=== PATIENT | female | born 1960 | race African-American/Black ===

== ENCOUNTER → 2020-08-17 14:56 | Outpatient (CLI) | payer OTHER, SELFPAY ==
--- NOTE | ~2020-08-17 | MM_ITS ---
EXAMINATION: MM screening [facility] BI w karishma HISTORY: Screening mammogram TECHNIQUE: Craniocaudal and mediolateral oblique 3-D tomosynthesis images were obtained and synthetic 2-D images were generated. CAD analysis was submitted and interpreted. COMPARISON: 09/01/2018, 03/12/2017, 04/20/2014 BREAST PARENCHYMAL COMPOSITION: The breasts are heterogeneously dense, which may obscure small masses . FINDINGS: There is stable asymmetry in the outer right breast on the craniocaudal view. There is no e vidence of suspicious mass, calcification, or architectural distortion to suggest malignancy in eithe r breast. There has been no suspicious interval change. IMPRESSION: 1. No mammographic evidence of malignancy. 2. Recommend routine screening mammography in one year. BI-RADS Category 2: Benign finding(s). Reviewed, dictated and finalized at location A.
== END ==
DX: Z12.31 Encounter for screening mammogram for malignant neoplasm of breast (principal)
CPT/HCPCS: 77063; 77067

== ENCOUNTER → 2022-05-28 12:15 | Outpatient (CLI) | payer OTHER, SELFPAY ==
--- NOTE | ~2022-05-28 | MM_ITS ---
EXAMINATION: MM screening [facility] [place] BI w karishma HISTORY: Screening mammogram TECHNIQUE: Craniocaudal and mediolateral oblique 3-D tomosynthesis images were obtained and synthetic 2-D images were generated. CAD analysis was submitted and interpreted. COMPARISON: 08/17/2020, 09/01/2018,03/12/2017 bilateral screening mammograms BREAST PARENCHYMAL COMPOSITION: The breasts are heterogeneously dense, which may obscure small masses . FINDINGS: Occasional benign calcifications. There is no evidence of suspicious mass, calcification, or architectural distortion to suggest malignancy in either breast. There has been no suspicious inte rval change. IMPRESSION: 1. No mammographic evidence of malignancy. 2. Recommend routine screening mammography in one year. BIRADS Category 2: Benign Reviewed, dictated and finalized at location A. 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
== END ==
DX: Z12.31 Encounter for screening mammogram for malignant neoplasm of breast (principal)
CPT/HCPCS: 77063; 77067

== ENCOUNTER 2024-06-10 09:47 | Outpatient (CLI) | payer MEDICARE, SELFPAY ==
--- NOTE | ~2024-06-10 | MM_ITS ---
EXAMINATION: MM screening [facility] w karishma HISTORY: Screening TECHNIQUE: Craniocaudal and mediolateral oblique 3-D tomosynthesis images were obtained and synthetic 2-D images were generated. CAD analysis was submitted and interpreted. COMPARISON: Comparison to multiple prior studies sequentially, with oldest reviewed study dated 02/18. BREAST PARENCHYMAL COMPOSITION: Dense: The breasts are heterogeneously dense, which may obscure small masses FINDINGS: There is no evidence of suspicious mass, calcification, or architectural distortion to sugg est malignancy in either breast. There has been no suspicious interval change. IMPRESSION: 1. No mammographic evidence of malignancy. 2. Recommend routine screening mammography in one year. BI-RADS Category 1: Negative Reviewed, dictated and finalized at location A. 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
--- OUTSIDE RECORDS SUMMARY | 2024-06-11 22:52 | XMS_ITS | Clinical Summary ---
Author Organization [facility] Address [address] [place] [address]. [place], [place] [id number] [place] [id number] Care Team Providers Care Controller Repairer And Tester Name Role Phone Stefanie Quezada MD Primary Care Provider [phone] Anjel Vaz MD Unavailable [phone] Allergies Active Allergy Reactions Criticality Noted Date Comments Sulfamethoxazole Itching 06/18/2022 Reaction: Itching, Trimethoprim Itching 06/18/2022 Reaction: Itching, Medications aspirin EC (ECOTRIN) 81 MG tablet Take 325 mg by mouth daily. Active lidocaine (XYLOCAINE) 5 % ointment Apply topically as needed for pain 3 Active Active Problems Problem Noted Date Diagnosed Date Closed right trimalleolar fracture 06/19/2022 Hepatic steatosis 06/18/2022 Overview (06/18/2022): Last Assessment & Plan: LFTs have normalized congratulated her on continue to lose weight. Chronic gastritis without bleeding 02/08/2021 Overview (06/18/2022): Last Assessment & Plan: Off PPI has lost weight and this is probably helping her the most would recommend EUS ultrasound in May which would be a year from the prior study Elevated LFTs 05/10/2020 Overview (06/18/2022): Last Assessment & Plan: Post spinterectomy repeat LFTs Family history of OK (myocardial infarction) Overview (06/18/2022): Father passed of sudden heart attack age 59 Age-related nuclear cataract of both eyes 2019 Overview (06/18/2022): Last Assessment & Plan: Not yet visually significant; follow for now PVD (posterior vitreous detachment), right 04/19 Overview (06/18/2022): Last Assessment & Plan: Acute X 1 week -retina flat and attached both eyes (OU) -pt ed s/s retinal detachment (RD): RTC rudi if noted -otherwise RTC 1 month repeat DFE Osteopenia of spine 07/24/2019 Overview (06/18/2022): Last Assessment & Plan: Calcium vitamin-D weight-bearing exercises Acne keloidalis nuchae 04/24/2019 Overview (06/18/2022): Last Assessment & Plan: The lesion has increased in size and now inflammed and large Initially the lesion has started as a small pimple according to her. Which unfortunately broke and then scarred and then has gradually increased in size she is not sure if the increase in size has been more in the past few months but definitely there's more burning and tingling. Recommend dermatology referral for biopsy and or resection. Recurrent major depressive disorder 12/02/2017 Overview (06/18/2022): Last Assessment & Plan: PHQ 9 and anxiety questionnaire reviewed. Doing well off of medication. Post menopausal syndrome 09/02/2017 Overview (06/18/2022): Last Assessment & Plan: Off HRT but doing well. Last Pap smear 2019 repeat in 2022 Sarcoidosis 08/05/2017 Overview (06/18/2022): Dx'd by mediastinoscopy circa 1989 Last Assessment & Plan: Doing well at this time. Resolved Problems Problem Noted Date Diagnosed Date Resolved Date Bimalleolar ankle fracture 06/18/2022 0 06/19/2022 Immunizations Name Administration Dates Next Due PFIZER COVID-19 (ORIGINAL FO RMULATION, PURPLE CAP) mRNA, LNP-S, PF, 30 MCG/0.3 ML DOSE 03/11/2021 Family History Medical History Relation Comments Hypertension Mother Relation Status Comments Mother Social History Tobacco Use Types Packs/Day Years Used Date Smoking Tobacco: Never Passive Smoke Exposure: Never Smokeless Tobacco: Never Tobacco Cessation:Counseling Given: No Comments:Never Smoked Alcohol Use Standard Drinks/Week Comments Yes 0 (1 standard drink = 0.6 oz pur e alcohol) socially Humiliation, Afraid, Rape, and Kick questionnair e Answer Date Recorded Within the last year, have y ou been afraid of your partner or ex-partner? No 06/18/2022 Within the last year, have y ou been humiliated or emotionally abused in other ways by your partner or ex-partner? No Within the last year, have y ou been kicked, hit, slapped, or otherwise physically hurt by your partner or ex-partner? No 06/18/2022 Within the last year, have y ou been raped or forced to have any kind of sexual activity by your partner or ex-partner? No 06/18/2022 Overall Financial Resource Strain (CARDIA) Answe r Date Recorded How hard is it for you to pa y for the very basics like food, housing, medical care, and heating? Not hard at all 06/18/2022 PHQ-2 Answer Date Recorded Patient Health Questionnaire-2 Score 0 07/30/2022 Hunger Vital Sign Answer Date Recorded Within the past 12 months, y ou worried that your food would run out before you got the money to buy more. Never true 06/18/19 23 Within the past 12 months, t he food you bought just didn't last and you didn't have money to get more. Never true 06/18/2022 PRAPARE - Transportation Answer Date Re corded In the past 12 months, has l ack of transportation kept you from medical appointments or from getting medications? No 05/22 In the past 12 months, has l ack of transportation kept you from meetings, work, or from getting things needed for daily living? No 06/18/2022 Housing Stability Vital Sign Answer Guerrero e Recorded In the last 12 months, was t here a time when you were not able to pay the mortgage or rent on time? No 06/18/2022 In the last 12 months, how many places have you lived? 1 06/18/2022 In the last 12 months, was t here a time when you did not have a steady place to sleep or slept in a detention (including now)? No 06/18/2022 Comments No Sex and Gender Information Value Date Recorded Sex Assigned at Not on file Legal Sex Female 6:13 PM CDT Gender Identity Not on file Sexual Orientation Not on file Last Filed Vital Signs Vital Sign Reading Time Taken Comments Blood Pressure 138/92 11/26/2022 7:29 PM CDT Pulse 100 11/26/2022 7:19 PM CDT Temperature 36.2 ??C (97.2 ??F) 11/26/2022 7:19 PM CD T Respiratory Rate 16 11/26/2022 7:19 PM CDT Oxygen Saturation 98% 11/26/2022 7:19 PM CDT Inhaled Oxygen Concentration - - Weight 82.5 kg (181 lb 14.1 oz) 11/26/2022 7:19 PM CDT Height 177.8 cm (5' 10 ) 11/26/2022 7:19 PM CDT Body Mass Index 26.1 11/26/2022 7:19 PM CDT Plan of Treatment Health Maintenance Due Date Last Done Comments Colorectal Cancer Screening Colonoscopy (10 Years) 1959 Hepatitis C 1977 Mammogram Screening 1999 Zoster Vaccines (1 of 2) 2009 RSV Immunization or 60+ Years (1 - Risk 60-74 years 1-dose series) 2019 PHQ-2 (Physician [place]) 07/31/2023 07/30/2022 COVID-19 Vaccine (5 - season) 2024 02/22/2022, 03/11/2021, 07/01/2020, Additional history exists Dexa Scan (General) 02/12/2024 Pneumococcal Vaccine: 65+ Years (1 of 1 - PCV) 02/12/2024 Influenza Adult (#1) 2024 02/15/2022, 02/08/2021, 03/03/2020, Additional history exists DTaP, Tdap and Td Vaccines (3 - Td or Tdap) 07/01/2024 07/01/2014, 05/30/2012 Meningococcal B Vaccine Aged Out No l onger eligible based on patient's age to complete this topic Meningococcal Vaccine Aged Out No alma alexis eligible based on patient's age to complete this topic Pneumococcal Vaccine: Pediatrics (0 to 5 Years) and At-Risk Patients (6 to 64 Years) Aged Out No longer eligible based on patient's age to complete this topic RSV Immunizations Under 20 Months Aged Out No longer eligible based on patient's age to complete this topic Goals Goal Patient Goal Type Associated Problems Recent Progress Patient-Stated? Author Family - family caregiver with be involved in care transitions and discharge planning Lifestyle No Silver Perez, RN Medical Devices Implanted Type Area Fret Saw Operator Device Identifier Shelf Expiration Date Model / Serial / Lot 6 Hole Locking Distal Fibula Plate Implanted:Qty: 1 on 06/21/2022 by Anjel Vaz MD at [facility] Plate Right: Ankle [employer] [id number] 06 / / Screw Cortical Arthrex 3.5 X 12mm - [id number] Implanted:Qty: 1 on 06/21/2022 by Anjel Vaz MD at [facility] Screw Right: Ankle [employer] [id number] / / Screw Locking Arthrex 2.7 X 12mm - [id number] Implanted:Qty: 3 on 06/21/2022 by Anjel Vaz MD at [facility] Screw Right: Ankle [employer] [id number]-1 2 / / Screw Bone 3.5mm 14mm Low Profile Screw Stainless Steel T15 Full Thread Cortex Nonlock Self Tap Ankle Fracture Management - [id number] Implanted:Qty: 2 on 06/21/2022 by Anjel Vaz MD at [facility] Screw Right: Ankle [employer] [id number] / / Screw Locking Arthrex 2.7 X 10mm - [id number] Implanted:Qty: 1 on 06/21/2022 by Anjel Vaz MD at [facility] Screw Right: Ankle [employer] [id number]-8827CL- 10 / / Screw Bone 2.7mm 14mm Low Profile Screws Stainless Steel T10 Full Thread Cortex Self Tap Lock Stardrive Solid Ankle Fracture Management - [id number] Implanted:Qty: 1 on 06/21/2022 by Anjel Vaz MD at [facility] Screw Right: Ankle [employer] [id number]- 14 / / Screw Low Profile Arthrex 40mm - [id number] Implanted:Qty: 2 on 06/21/2022 by Anjel Vaz MD at [facility] Screw Right: Ankle [employer] [id number]- 40 / / Insurance [facility] Advance Directives * Full Code (Latest Code Status on File) Date Activated Date Inactivated Comments 06/19/2022 7:46 AM 06/22/2022 8:18 PM Care Teams Controller Repairer And Tester Relationship Specialty Start Date End Date Stefanie Quezada MD [address] [address] PCP - General INTERNAL MEDICINE 06/18/22 Anjel Vaz MD [address] [place] [id number] ORTHOPAEDIC SURGERY 07/25/22
--- OUTSIDE RECORDS SUMMARY | 2024-06-11 22:52 | XMS_ITS | Referral Summary ---
Author Organization [facility] Address [address] [place] [address] Care Team Providers Care Progress Developer Name Role Phone Stefanie Quezada MD Primary Care Provider Ralph Torrez MD Unavailable [phone] Moira Mireles OD Unavailable [phone] Encounters Date Type Department Care Team Description 06/08/2024 Telephone [facility] Medicine [address] [place] [address] Stefanie Quezada MD Medical Question/Miscellaneou s 04/04/2024 11:20 AM MACHINE PRECISION ETCHER - 04/04/2024 11:59 PM MACHINE PRECISION ETCHER Hospital Encounter [address] [address] Intractable chronic migraine without aura and with status migrainosus; Dizzy spells; Lightheadedness Discharge Disposition: Discharge to home or self care 03/19/2024 9:00 AM CDT Lab [facility] [address] [place] [address] Hypertensive retinopathy of both eyes, grade 2 03/19/2024 8:00 AM CDT Office Visit [facility] [address] [place] [address] Jesus Moore NP Intractable chronic migraine without aura and with status migrainosus (Primary Dx); Dizzy spells; Lightheadedness from Last 3 Months Allergies Active Allergy Reactions Criticality Noted Date Comments Losartan Dizziness Low 02/14/2024 Sulfamethoxazole Itching Reaction: Itching, Trimethoprim Itching Reaction: Itching, Medications albuterol HFA (PROVENTIL HFA,VENTOLIN HFA,PROAIR HFA) 90 mcg/actuation inhaler Inhale 2 puffs every 8 (eight) hours as needed for wheezing 1 each 02/22/20 Active dicyclomine (BENTYL) 10 mg capsule Take 1 capsule (10 mg total) by mouth 4 (four) times a day before meals and nightly 02/23/20 Active lidocaine (XYLOCAINE) 5 % ointment Apply topically as needed for pain 35.44 g 12/23/19 24 Active rimegepant (Nurtec ODT) tablet,disintegrat ingIndications:[facility] 1 tablet (75 mg total) under the tongue every other day 45 tablet 3 02/25/20 24 Active Additional Information Patient not taking.Reported on 03/19/2024 rizatriptan HAND SCREEN PRINTER (MAXALT-HAND SCREEN PRINTER) 10 mg disintegrating tabletIndications: Migraine Take 1 tablet (10 mg total) by mouth once as needed for migraine May repeat in 2 hours if unresolved. Do not exceed 30 mg in 24 hours. 9 tablet 1 02/25/20 24 Active amLODIPine (NORVASC) 5 mg tablet Take 1 tablet (5 mg total) by mouth daily 90 tablet 1 02/25/20 24 Active escitalopram (LEXAPRO) 10 mg tablet TAKE 1 TABLET BY MOUTH EVERY DAY 90 tablet 1 04/27/20 24 Active QUEtiapine (SEROquel) 25 mg tablet Take 1 tablet (25 mg total) by mouth nightly 90 tablet 1 05/04/20 24 Active propranolol LA (INDERAL LA) 60 mg 24 hr capsule Take 1 capsule (60 mg total) by mouth daily 30 capsule 11 05/18/20 24 Active nortriptyline (PAMELOR) 25 mg capsule Take 1 capsule (25 mg total) by mouth nightly 90 capsule 1 05/19/20 24 025 Active nortriptyline (PAMELOR) 25 mg capsule Take 1 capsule (25 mg total) by mouth nightly 90 capsule 1 02/25/20 24 024 Discontin ued(Reord er) propranolol LA (INDERAL LA) 60 mg 24 hr capsule Take 1 capsule (60 mg total) by mouth daily 30 capsule 11 03/19/20 24 024 Discontin ued(Reord er) Active Problems Problem Noted Date Diagnosed Date Intractable chronic migraine without aura and with status migrainosus 02/25/2024 Assessment & Plan (03/19/2024 9:03 AM CDT): Patient presents today for re-evaluation of acute migraines with sudden onset with associated symptoms of light sensitivity, dizziness, double vision, and pain occurring in her occipital region radiating to her temporal and frontal region. An MRI was completed which did not show any acute intracranial abnormality. She reports significant improvement with propranolol and nortriptyline. Reports slightly increased constipation issues. Given her complaints of lightheadedness, dizziness, and double vision I advised the pain CTA of her head and neck for further evaluation for posterior circulation. Current preventative therapies: nortriptyline propranolol Current acute therapies: rizatriptan Plan: 1. Headache diary 2. Preventative: Increase propranolol 60 mg extended release; advise checking blood pressure and heart rate daily. Discussed side effects and if occurs she is to notify office. Continue nortriptyline 25 mg p.o. nightly. Advise daily MiraLax to help with constipation side effect. 3. Acute therapy: Continue rizatriptan 10 mg at the onset of symptoms; may repeat dose in 2 hours if symptoms still present 4. Limit caffeine intake 5. Encouraged regular exercise and well-balanced diet 6. Encouraged adequate water intake 7. Check for reversible causes including vitamin B1, vitamin B12, folate, and TSH cascade 8. Obtain CTA head and neck to check for posterior circulation 9. Follow up 3-4 months At today? s visit migraine education was performed. We discussed avoidance of migraine triggers and non-medicinal strategies for preventing migraines. Topics of discussion included improved sleep hygiene, healthy diet, and stress reduction techniques. We also discussed the importance of avoiding medication overuse, as this can promote analgesic rebound headache. Assessment & Plan (02/25/2024 9:01 AM CDT): We d/w this in detail and we d.w mri brain with and with out contrast We d.w increasing the dose of pamelor 25 mg at night And we d.w nurtec 75 every other day and avoid excedrin migraine and we d.w using maxalt as needed Uncontrolled hypertension 02/25/2024 Assessment & Plan (02/25/2024 9:01 AM CDT): Cont amlodipine 5 mg a day SOB (shortness of breath) on exertion 02/07/2024 Assessment & Plan (02/07/2024 4:00 PM CDT): Has history of sarcoidosis. Sounds clear. EKG shows no acute findings. Would like to start with an echocardiogram. Recent blood work was unremarkable. New onset headache 02/07/2024 Assessment & Plan (02/07/2024 4:00 PM CDT): We discussed getting stat CT head. Part of me wonders if this is a side effect of recently being started on Lexapro versus getting flu and pneumonia vaccine. CT head unremarkable. She is currently on nortriptyline at bedtime already. We discussed this could possibly be also ocular migraine. Start ubrelvy as needed. Sample given. We discussed worsening symptoms contact the office. Has an appointment with work ticket distributor next week. We did discuss cutting down the Lexapro to 5 mg. Case discussed with Dr. Quezada. Discussed worsening symptoms to go to the ER. Next week she will update on how she is doing. Blurred vision, bilateral 02/07/2024 Assessment & Plan (02/07/2024 4:01 PM CDT): Wondering if part of ocular migraine. Neuro exam is stable. Stat CT head completed which was negative. Diastolic blood pressure slightly elevated. At this time would like to start with using ubrelvy as needed for possible migraine. Cut down on lexapro to 5mg. Has an appointment with work ticket distributor next week. Worsening symptoms to call or go to the ER. Post-menopausal 01/31/2024 Hair thinning 01/31/2024 Assessment & Plan (01/31/2024 5:21 PM CDT): Discussed getting TSH and seeing a cctv technician Pancreatic cyst 02/19/2023 Assessment & Plan (01/31/2024 5:19 PM CDT): Needs to follow-up with business programmer for EUS. States she will have to make a follow up. Assessment & Plan (02/19/2023 3:39 PM CDT): Referral placed for GI for EUS Insomnia due to medical condition 02/19/2023 Assessment & Plan (01/31/2024 5:19 PM CDT): Continue Seroquel Assessment & Plan (02/19/2023 3:40 PM CDT): Recommended Atarax at bedtime Chronic gastritis without bleeding 02/08/2021 Assessment & Plan (02/19/2023 3:40 PM CDT): Discussed PPI with pantoprazole for 30 days followed by Pepcid 20 mg twice daily hopefully she we would have had the EUS by the time Assessment & Plan (02/08/2021 12:55 PM CDT): Off PPI has lost weight and this is probably helping her the most would recommend EUS ultrasound in May which would be a year from the prior study Family history of [place] (myocardial infarction) Overview (05/10/2020): Father passed of sudden heart attack age 59 Other fatigue 05/10/2020 Assessment & Plan (02/07/2024 4:02 PM CDT): Ongoing for past couple of days. She did get to vaccination as well as started on Lexapro. One of these could be a contributing factor. At this time will decrease Lexapro to 5. Monitor the symptoms. Recent blood work was overall unremarkable. She has no urinary symptoms. We will do close monitoring. She will notify us if the symptoms are worsening or not improving. She will update next week on how things are going. Elevated LFTs 05/10/2020 Assessment & Plan (08/10/2020 12:58 PM CDT): Post spinterectomy repeat LFTs Assessment & Plan (05/10/2020 1:09 PM MACHINE PRECISION ETCHER): Acute elevation in LFTs & bilirubin. Patient has a Hx of cholecystitis with cholecystectomy. Discussed possibilities for biliary tract obstruction including residual stone, mass, mucus plugging etcetera. Patient agrees to go to [facility] ED. Triage report called to [facility] ED. Age-related nuclear cataract of both eyes 2019 Assessment & Plan (04/20/2020 3:27 PM MACHINE PRECISION ETCHER): Not yet visually significant; follow for now PVD (posterior vitreous detachment), right 04/19 Assessment & Plan (04/20/2020 3:28 PM MACHINE PRECISION ETCHER): Acute X 1 week -retina flat and attached both eyes (OU) -pt ed s/s retinal detachment (RD): RTC rudi if noted -otherwise RTC 1 month repeat DFE Assessment & Plan (04/19/2020 3:18 PM MACHINE PRECISION ETCHER): No headaches noted. But there is describing spots during the field of vision. Recommended [employer] evaluation. Referral made. Osteopenia of spine 07/24/2019 Assessment & Plan (02/08/2021 12:55 PM CDT): Calcium vitamin-D weight-bearing exercises Assessment & Plan (08/10/2020 12:57 PM CDT): Continue calcium vitamin-D weight-bearing exercises repeat bone density Assessment & Plan (07/24/2019 1:58 PM MACHINE PRECISION ETCHER): We d/w this in detail and we d.w ca and vit D and weight bearing exercises Acne keloidalis nuchae 04/24/2019 Assessment & Plan (01/31/2024 5:28 PM CDT): Referred to dermatology Assessment & Plan (04/24/2019 3:06 PM MACHINE PRECISION ETCHER): The lesion has increased in size and [...] dermatology referral for biopsy and or resection. BMI 25.0-25.9,adult 04/24/2019 Assessment & Plan (02/15/2022 8:16 PM CDT): BMI follow up: nutritional counseling and exercise as tolerated. Assessment & Plan (04/24/2019 3:06 PM MACHINE PRECISION ETCHER): Discussed weight and exercise changes. She is very motivated to bring her BMI down. Routine physical examination 06/20/2018 Assessment & Plan (02/06/2024 8:29 PM CDT): HRA form reviewed. We discussed diet and exercise. We discussed continuing social engagement with family and within community. States very active. We discussed seeing business programmer for repeat EUS. Pneumonia vaccine today. Flu and COVID vaccine at local pharmacy next month. Up-to-date on colonoscopy. Pap smear completed on today's visit. Needs a mammogram and bone density. Assessment & Plan (02/19/2023 3:39 PM CDT): Colonoscopy 2019 was unremarkable. Upper endoscopy showed chronic gastritis and pancreatic cysts. At this point I am concerned about her abdominal discomfort. Per GI was recommended to have a repeat EUS in 1 year but we had a almost 2 and half years out. Discussed this with patient. The night sweats are a major issue. Instead of HRT we decided to go the route of Atarax at bedtime to decrease the itching from the keloids. Discussed flu COVID and RSV vaccination all 3 of which she is going to obtain at the pharmacy. Assessment & Plan (02/15/2022 8:14 PM CDT): Patient's medical history, family history, medication list reviewed. Order for mammogram given. She would like to skip bone density this year given her insurance. Up to date on pap smear. Blood work ordered. Up to date on vaccination. Flu vaccine today. Up to date on colonoscopy. Assessment & Plan (08/10/2020 12:57 PM CDT): Mammogram and bone density to be done. Pap smear July of 2019 20-repeat in 2022 up-to-date with vaccinations. Discussed repeating LFTs. Cholesterols have been stable last year will skip this year. Assessment & Plan (06/20/2018 3:10 PM MACHINE PRECISION ETCHER): We discussed diet and exercise in detail. Discussed the need for well-woman exam. Referrals given. She is going to start all of these in August. Screening for breast cancer 06/20/2018 Screening for colon cancer 06/20/2018 Recurrent major depressive disorder 12/02/2017 Assessment & Plan (02/07/2024 4:03 PM CDT): Was started on Lexapro 10 mg which she has previously been on before. At this time we will decrease it to 5 mg given side effects could potentially be headache from the medication. She verbalizes understanding. Once the headaches are resolved and she has been on it for 4 weeks we will go back up to 10 mg. She verbalizes understanding Assessment & Plan (01/31/2024 5:16 PM CDT): Struggling with depression at this time. Previously has been on Lexapro as well as Wellbutrin at 1 point. States seems this medication did help however she stopped taking them when she started feeling better. At this time does feel that she would benefit from going back on medication. Would like to start her on Lexapro 10 mg. Continue Seroquel at bedtime. We discussed reaching out in 4 weeks with letting us know how she is doing on the dosage. Verbalizes understanding Assessment & Plan (02/15/2022 8:15 PM CDT): PHQ 9 and anxiety questionnaire reviewed. Doing well off of medication. Assessment & Plan (02/08/2021 12:56 PM CDT): Doing very well off medications. Assessment & Plan (08/10/2020 12:57 PM CDT): Continue Wellbutrin and Lexapro. Doing well. Assessment & Plan (05/10/2020 11:10 PM MACHINE PRECISION ETCHER): Continue home wellbutrin and lexapro Assessment & Plan (04/19/2020 3:17 PM MACHINE PRECISION ETCHER): Patient doing better with increasing the Lexapro to 20 along with Wellbutrin. Not requiring the Lunesta on a regular basis. Assessment & Plan (01/13/2020 10:57 AM CDT): Discussed increasing Lexapro to 20 mg and using Wellbutrin XL 150 in the morning as usual discussed trying to plan some fun activities with her sisters our goal from. Has been through marital counseling before and would not like to go back to marital counseling again she does realize that she needs to make some decisions on her own. We had tried Lunesta in the past for sleep issues and she is going to get back to me about this. Assessment & Plan (04/24/2019 3:06 PM MACHINE PRECISION ETCHER): Doing well on Lexapro 10 mg a day and Wellbutrin XL 150 mg a day. Discussed diet and exercise and cognitive behavioral therapy Assessment & Plan (06/20/2018 3:10 PM MACHINE PRECISION ETCHER): Patient is smiling and doing well on Wellbutrin XL in the morning and Lexapro 10 at night. She has stop the Lunesta as she is able to sleep better. We discussed continuing the medications at least for a total of 24 months. Assessment & Plan (12/02/2017 5:16 PM CDT): We discussed this at length we discussed trying Lexapro since she had great success with in the past we discussed continuing the Wellbutrin in the morning we discussed marital conflict being a major part of this she is going to see a counselor as well we discussed close follow-up and call us if there is worsening of symptoms sooner Post menopausal syndrome 09/02/2017 Assessment & Plan (02/08/2021 12:55 PM CDT): Off HRT but doing well. Last Pap smear 2019 repeat in 2022 Assessment & Plan (04/19/2020 3:17 PM MACHINE PRECISION ETCHER): Scheduled for mammogram by end may. Continuing Activella. Assessment & Plan (04/24/2019 3:06 PM MACHINE PRECISION ETCHER): Up-to-date with mammogram. Pap smear in June of 2019. Continue Activella. Assessment & Plan (06/20/2018 3:10 PM MACHINE PRECISION ETCHER): Continue control. Mammogram and bone density prescriptions have been given. Assessment & Plan (12/02/2017 4:16 PM CDT): Still use lunesta as needed and we d.w adding lexapro to wellbutrin Assessment & Plan (09/02/2017 11:07 AM CDT): Situational depression and insomnia We d.w wellbutrin XL 150mg q am And lunesta in evening Pleurisy 08/28/2017 Assessment & Plan (08/28/2017 3:46 PM CDT): Two weeks of prednisone via tapering dose Sarcoidosis 08/05/2017 Overview (08/28/2017): Dx'd by mediastinoscopy [id number] Assessment & Plan (01/31/2024 5:11 PM CDT): Doing stable. Albuterol inhaler as needed. Assessment & Plan (02/15/2022 8:13 PM CDT): Doing well at this time. Assessment & Plan (02/08/2021 12:56 PM CDT): Doing well at this current time. Will continue to watch. She usually uses prednisone for a flare up. Assessment & Plan (01/13/2020 10:56 AM CDT): Currently her inflammatory markers and CBC are normal she seems to be doing well she does have her ProAir for backup we discussed gradually increasing exercising. Discussed having prednisone on hand when symptoms change. Assessment & Plan (09/02/2017 11:08 AM CDT): Reviewed the pulmonary note and we d.w the tapering the prednisone Assessment & Plan (08/28/2017 3:46 PM CDT): Highly doubt that this represents a flare of underlying sarcoidosis given the negative CT and low WADE level. Assessment & Plan (08/05/2017 5:12 PM CDT): Working diagnosis, based on syms Hepatic steatosis Assessment & Plan (02/19/2023 3:40 PM CDT): Discussed diet and exercise changes Assessment & Plan (02/08/2021 12:55 PM CDT): LFTs have normalized congratulated her on continue to lose weight. Resolved Problems Problem Noted Date Diagnosed Date Resolved Date Chest pain 05/10/2020 08/10/2020 Assessment & Plan (05/10/2020 11:10 PM MACHINE PRECISION ETCHER): Most likely secondary to GI source. Will follow trop and monitor on tele. On OCP - considered PE, but no SOB, tachycardia, or oxygen requirement and chest pain not persistent. Will work up as above Assessment & Plan (05/10/2020 10:21 AM MACHINE PRECISION ETCHER): EKG negative for any signs of ACS. Will get labs, start ppi given written information on lifestyle changes to improve symptoms. Given family Hx will get stress test as well after the holiday. Discussed if she has any recurrent escalating symptoms this would be a reason to go to ED. DD: Gastritis/GERD, pancreatitis, less likely cholecystitis or CAD Indigestion 05/10/2020 08/10/2020 Elevated liver function tests 05/10/2020 08/10/2020 Assessment & Plan (05/10/2020 11:11 PM MACHINE PRECISION ETCHER): LFTs significantly elevated for the first time in our system. Associated with this chest pain yesterday that has been colicky since it's onset. -- CLD, NPO after midnight -- IVF -- GI has been consulted - appears plan is for an ERCP tomorrow -- Check coags -- Check hepatitis panel -- COVID neg -- Empiric PPI for now Leukopenia 05/10/2020 08/10/2020 Assessment & Plan (05/10/2020 11:29 PM MACHINE PRECISION ETCHER): Appears new - unclear etiology - will just follow for now Strep pharyngitis 08/11/2018 08/10/2020 Assessment & Plan (08/11/2018 10:51 AM CDT): Rapid strep +. Placed on amoxicillin b.i.d. X7 days, [id number] supportive care infection control precautions outlined. Complicated UTI (urinary tract infection) 08/05/2017 06/20/2018 Assessment & Plan (08/05/2017 5:12 PM CDT): resolved Elevated blood pressure read ing without diagnosis of hypertension 08/05/2017 02/25/2024 Assessment & Plan (01/31/2024 5:29 PM CDT): Pressure slightly elevated on today's visit. We recommend monitoring blood pressure. She does have blood pressure machine at home. She will send some readings in 3 weeks. Discussed call sooner if systolic blood pressure consistently higher than 140 and/or diastolic blood pressure greater than 90 Assessment & Plan (08/05/2017 5:12 PM CDT): hospital readings have been consistently low, so we asked to do some at home readings Upper abdominal pain 021 Immunizations Name Administration Dates Next Due Influenza, Quadrivalent, Spl it, Preservative Free, Intradermal 03/03/2020,02/16/2019 Influenza, Quadrivalent, Spl it, Preservative Free, Intramuscular 02/15/2022,02/08/2021,02/16/2019,02/17 Influenza, Trivalent, Cell Culture-based MDCK, Preservative Free, Antibiotic Free, Intramuscular 01/31/2024 Influenza, Unspecified 02/17/2023 Pfizer SARS-CoV-2 Monovalent Vaccination (12+ Yrs) PURPLE 03/11/2021,07/01/2020,06/10/2020 Pneumococcal Conjugate Pcv20 01/30/2024 Tdap 07/01/2014 ZOSTER Recombinant 01/28/2023,09/13/2022 Social History Tobacco Use Types Packs/Day Years Used Date Smoking Tobacco: Never Smokeless Tobacco: Never Tobacco Cessation:Counseling Given: Not Answered Alcohol Use Standard Drinks/Week Comments Yes 0 (1 standard drink = 0.6 oz pur e alcohol) social AUDIT-C Answer Date Recorded Q1: How often do you have a drink containing alc ohol? Monthly or less 03/19/2024 Q2: How many drinks containi ng alcohol do you have on a typical day when you are drinking? 1 or 2 03/19/2024 Q3: How often do you have si x or more drinks on one occasion? Less than monthly 03/19/2024 PHQ-2 Answer Date Recorded PHQ-2 Total Score (If total score is 3 or more points, staff should administer the PHQ-9) 0 02/25/2024 Personal Safety Answer Date Recorded Have you ever been in or are you currently in a harmful physical or emotional relationship or is someone making you feel afraid or unsafe? Denies 03/04/2024 Comments No Sex and Gender Information Value Date Recorded Sex Assigned at Not on file Legal Sex Female 4:21 AM MACHINE PRECISION ETCHER Gender Identity Female 10/18/2022 10:06 PM CDT Sexual Orientation Straight 10/18/2022 10 :06 PM CDT Last Filed Vital Signs Vital Sign Reading Time Taken Comments Blood Pressure 110/78 03/19/2024 8:09 AM CDT Pulse 65 03/19/2024 8:09 AM CDT Temperature 36.2 ??C (97.2 ??F) 03/04/2024 8:23 AM CD T Respiratory Rate 16 03/19/2024 8:09 AM CDT Oxygen Saturation 96% 03/19/2024 8:09 AM CDT Inhaled Oxygen Concentration - - Weight 79.4 kg (175 lb) 03/19/2024 8:09 AM CDT Height 177.8 cm (5' 10 ) 03/19/2024 8:09 AM CDT Body Mass Index 25.11 03/19/2024 8:09 AM CDT Plan of Treatment Not on file Medical Devices Explanted Type Area Brand Coordinator Device Identifier Shelf Expiration Date Model / Serial / Lot [employer] 6552 [place] 5fr 5cm Flexible .035in Small Pigtail Curve Stent - [id number] Explanted:Qty: 1 on 05/11/2020 by Phill Alexis MD at [facility] Stent N/A: Bile Duct [employer] 09/16/2024 6552 / / [id number] Procedures Procedure Name Priority Date/Time Associated Diagnosis Comments CTA HEAD NECK W WO CONTRAST Schedule Routine, Read Routine (OP Routine) 04/04/2024 11:57 AM MACHINE PRECISION ETCHER Intractable chronic migraine without aura and with status migrainosus Dizzy spells Lightheadedness EGFR Routine 03/19/2024 8:52 AM CDT Hypertensive retinopathy of both eyes, grade 2 BASIC METABOLIC PANEL Routine 03/19/2024 8:52 AM CDT Hypertensive retinopathy of both eyes, grade 2 PAP WITH REFLEX TO HIGH RISK HPV Routine 01/30/2024 12:00 AM CDT Screening for cervical cancer HEPATITIS PANEL, ACUTE Routine 03/08/2023 10:37 AM CDT Fatty liver disease, nonalcoholic SCREENING MAMMOGRAM 2D BILATERAL Schedule Routine, Read Routine (OP Routine) 05/28/2022 COLONOSCOPY 06/02/2019 12:38 PM MACHINE PRECISION ETCHER DEXA AXIAL SKELETON BONE DENSITY 1 OR MORE SITES Schedule Routine, Read Routine (OP Routine) 10/20/2018 11:07 AM CDT Post menopausal syndrome from Last 3 Months or Most Recently Relevant to Health Maintenance Results * CTA Head Neck W WO Contrast (04/04/2024 11:57 AM MACHINE PRECISION ETCHER) Anatomical Region Laterality Modality Head and Neck N/A Computed Tomogra phy 04/06/2024 9:03 AM MACHINE PRECISION ETCHER Narrative 04/06/2024 9:15 AM MACHINE PRECISION ETCHER EXAM DESCRIPTION: ?? CTA HEAD NECK W WO CONTRAST REASON FOR STUDY: Acute migraines with sudden onset with associated symptoms of light sensitivity, dizziness, double vision, and pain occurring in her occipital region radiating to her temporal and frontal region. ?? X 3 months TECHNIQUE: Axial images were first obtained through the brain without contrast. ?? Axial dynamic scanning technique with dynamic contrast enhancement through the intracranial and extracranial carotid and vertebral arteries. Multiplanar reconstruction. All stenosis measurements are based on NASCET criteria. ??3D MIP images rendered on scanning unit and reviewed at time of interpretation. Automated exposure control was used as a dose optimization technique for this examination. CONTRAST TYPE/DOSE: ?? 100mL of IOVERSOL 350 MG IODINE/ML INTRAVENOUS SYRINGE ?? injected via ?? intravenous COMPARISON: Brain MRI dated 02/26/2024 FINDINGS: BRAIN CEREBRUM: ?? No hemorrhage, edema or mass effect. No recent infarct. Brain parenchyma volume well-maintained. WHITE MATTER: ?? Normal. POSTERIOR FOSSA: ?? No masses. No hemorrhage. No evidence for acute infarction. EXTRA-AXIAL SPACES: ?? No fluid collections. No masses. ORBITS: ?? No significant abnormality. CALVARIUM: ?? No fracture. SINUSES/MASTOIDS: ?? No fluid or mucosal thickening. OTHER: ?? No other significant abnormality. INTRACRANIAL VESSELS [place] OF AVILES: ?? The anterior, middle, posterior cerebral arteries are all patent. ??No evidence of aneurysm or focal stenosis. POSTERIOR CIRCULATION: ?? The distal vertebral arteries are patent as is the basilar artery. No aneurysm. CAROTID CTA RIGHT CAROTIDS: ?? No internal, external or common carotid stenosis. LEFT CAROTIDS: ?? No internal, external or common carotid stenosis. ?? LEFT VERTEBRAL: ?? Patent. No significant stenosis. No dissection. ?? Congenitally hypoplastic and terminates as PICA. RIGHT VERTEBRAL: ?? Patent. No significant stenosis. No dissection. AORTIC ARCH: ?? Normal three-vessel origin. Bilateral subclavian arteries are patent. No dissection. NECK SOFT TISSUE: ?? No mass, adenopathy. No thyroid nodule greater than 1 cm. INCLUDED LUNGS: ?? No acute abnormality. No worrisome nodules. OTHER: ?? Ejoj-ub-oprjsmvw spinal canal stenosis suspected at C3-C4 due to a disc osteophyte complex. IMPRESSION: BRAIN: ?? No acute intracranial process. INTRACRANIAL CTA: ?? Normal. CAROTID CTA: ?? Normal CTA of the extra-cranial carotid and vertebral arteries. THIS IS AN ELECTRONICALLY VERIFIED FINAL REPORT 04/06/2024 9:15 AM - Electronically signed by ??Tushar Barba M.D. MM: MM D: ??04/06/2024 9:15 AM T: ??04/06/2024 9:15 AM Report ID: [id number] Reading Location: ??[id number] Procedure Note Tushar Barba MD - 04/06/2024 EXAM DESCRIPTION: CTA HEAD NECK W WO CONTRAST REASON FOR STUDY: Acute migraines with sudden onset with associatedsymptoms of light sensitivity, dizziness, double vision, and pain occurring in her occipital region radiating to her temporal and frontal region. X 3months TECHNIQUE: Axial images were first obtained through the brain without contrast. Axial dynamic scanning technique with dynamic contrast enhancement throughthe intracranial and extracranial carotid and vertebral arteries. Multiplanar reconstruction. All stenosis measurements are based on NASCET criteria. 3D MIP images rendered on scanning unit and reviewed at time of interpretation. Automated exposure control was used as a dose optimization technique forthis examination. CONTRAST TYPE/DOSE: 100mL of IOVERSOL 350 MG IODINE/ML INTRAVENOUSSYRINGE injected via intravenous COMPARISON: Brain MRI dated 02/26/2024 FINDINGS: BRAIN CEREBRUM: No hemorrhage, edema or mass effect. No recent infarct. Brain parenchyma volume well-maintained. WHITE MATTER: Normal. POSTERIOR FOSSA: No masses. No hemorrhage. No evidence for acuteinfarction. EXTRA-AXIAL SPACES: No fluid collections. No masses. ORBITS: No significant abnormality. CALVARIUM: No fracture. SINUSES/MASTOIDS: No fluid or mucosal thickening. OTHER: No other significant abnormality. INTRACRANIAL VESSELS [place] OF AVILES: The anterior, middle, posterior cerebral arteries areall patent. No evidence of aneurysm or focal stenosis. POSTERIOR CIRCULATION: The distal vertebral arteries are patent as isthe basilar artery. No aneurysm. CAROTID CTA RIGHT CAROTIDS: No internal, external or common carotid stenosis. LEFT CAROTIDS: No internal, external or common carotid stenosis. LEFT VERTEBRAL: Patent. No significant stenosis. No dissection. Congenitally hypoplastic and terminates as PICA. RIGHT VERTEBRAL: Patent. No significant stenosis. No dissection. AORTIC ARCH: Normal three-vessel origin. Bilateral subclavian arteriesare patent. No dissection. NECK SOFT TISSUE: No mass, adenopathy. No thyroid nodule greater than 1cm. INCLUDED LUNGS: No acute abnormality. No worrisome nodules. OTHER: Ptwx-xr-ydbrnoke spinal canal stenosis suspected at C3-C4 due toa disc osteophyte complex. IMPRESSION: BRAIN: No acute intracranial process. INTRACRANIAL CTA: Normal. CAROTID CTA: Normal CTA of the extra-cranial carotid and vertebralarteries. THIS IS AN ELECTRONICALLY VERIFIED FINAL REPORT 04/06/2024 9:15 AM - Electronically signed by Tushar Barba M.D. MM: MM Report ID: [id number] Reading Location: [place] [address] Jesus Moore NP [facility] CT PROCEDURES Final Result * eGFR (03/19/2024 8:52 AM CDT) eGFR >90 >=60 mL/min/1. 73 m2 Comment: Interpretive Data Reference Interval Normal ?>/= 90 mL/min/1.73m2 Mildly decreased* ? 60 - 89 mL/min/1.73m2 Mildly to moderately decreased ?45 - 59 mL/min/1.73m2 Moderately to severely decreased ??30 - 44 mL/min/1.73m2 Severely decreased ?15 - 29 mL/min/1.73m2 Kidney Failure ?< 15 ??mL/min/1.73m2 *Relative to young adult level Estimated glomerular filtration rate is determined by the 2020 CKD-EPI equation recommended by the National Kidney Foundation (A Unifying Approach to GFR Estimation: Recommendations of the NKF-ASK Task Force on Reassessing the Inclusion of Race in Diagnosing Kidney Disease, JASN 202). The CKD-EPI equation should not be used for patients with unstable renal function and has not been validated in children and those over 70. Current interpretive data was last reviewed 2021. Blood 03/19/2024 8:52 AM CDT 03/19/2024 1:12 PM CDT us Stefanie Quezada MD LAB BLOOD ORDERABLES Fi nal Result [facility] [address] [place] [address] * Basic metabolic panel (03/19/2024 8:52 AM CDT) Sodium 137 135 - 145 mmol/L Potassium, pl 4.4 3.3 - 4.9 mmol/L [facility] Chloride 98 97 - 110 mmol/L [facility] CO2 27 22 - 32 mmol/L [facility] Anion gap 12 2 - 15 mmol/L [facility] BUN 11 6 - 25 mg/dL [facility] Creatinine 0.69 0.60 - 1.10 mg/dL [facility] Glucose 101 70 - 199 mg/dL [facility] Comment: Interpretive Data Fasting glucose >/= 126 mg/dl is diagnostic for diabetes. ?? Fasting is defined as no caloric intake for at least 8 hours. Fasting glucose between 100 mg/dl to 125 mg/dl is diagnostic of prediabetes. In a patient with classic symptoms of hyperglycemia or hyperglycemic crisis, a random glucose >/= 200 mg/dl is diagnostic for diabetes. In the absence of unequivocal hyperglycemia, results should be confirmed by repeat testing. The classification and Diagnosis of Diabetes Diabetes Care 202; 46: S19-S40. Current interpretive data was last revised 2022. Calcium 9.9 8.5 - 10.3 mg/dL [facility] Blood 03/19/2024 8:52 AM CDT 03/19/2024 1:12 PM CDT Stefanie Quezada MD LAB BLOOD ORDERABLES Fi nal Result [facility] [address] Department [place] [address] * Pap with reflex to High Risk HPV and Genotyping (Cytology Component) (01/30/2024 12:00 AM CDT) Thin prep (Pap test) 01/30/2024 01/31/2024 12:19 PM CDT Narrative PATHOLOGY [facility] - 02/04/2024 3:39 PM CDT EPIC results best viewed via link to PDF [address] ??[address] Tele: ?? Addie Lincoln MD - Dolly Operator CYTOLOGY REPORT Note to Patients: This report may contain a detailed description of human tissue sent by a health care provider to the laboratory for pathologic evaluation. The content of this report is essential for diagnosis and may provide important critical findings. This information may be unfamiliar to patients to review without a medical professional present. It is advised that the patient review this report in the presence of a health care provider who can answer questions and explain the details. Patient Name: ??KRISTY CA Address: ??[address] [place] [id number] Gender: ??F : ??1960 (Age: 63) Service: ?? Location: ?? Hospital #: ??[id number] Patient Type: ??[facility] SPECIMEN Taken: ??01/30/2024 Reported: ??02/04/2024 Physician(s): ? ANANTH Winn FINAL DIAGNOSIS: SOURCE OF SPECIMEN ?- ThinPrep Pap w/ reflex HPV: STATEMENT OF ADEQUACY Source: ??Cervical/Endocervical ?- Satisfactory for interpretation ?- Endocervical /Transformation Zone component present ?- Case screened using computer assisted imaging technology and manually re-screened by a silk screener. ? GENERAL CATEGORIZATION: ?- Negative for intraepithelial lesion or malignancy ? INTERPRETATION: ?- Acute Inflammation ? cad/02/04/2024 15:39Leora Bradshaw M.S., CT (ASCP) Report Reviewed and Electronically Signed By ??Leora Bradshaw M.S., CT (ASCP)Clerical Data Follow A; [id number] CLINICAL DIAGNOSIS AND HISTORY Menstrual History: Post-menopausal REPORT IMAGES AND/OR SCANNED DOCUMENTS ONLY VIEWABLE IN PDF FORMAT The Pap test is a screening test used to aid in the detection of cervical cancer and its precursors. It should not be the sole means by which malignant and premalignant lesions are diagnosed. ??Both false negative and false positive results may occur. ??It also has poor sensitivity for the detection of endometrial lesions and should not be used to evaluate suspected endometrial abnormalities. ??For these reasons it is most important to obtain Pap tests at regular intervals, as recommended by your physician or nurse practitioner. Alexander Brenner NP LAB CYTOLOGY ORDERABLES Final Result PATHOLOGY [facility] Laboratory Receiving [address] [place] [address] * Hepatitis panel, acute Blood (03/08/2023 10:37 AM CDT) Hep A IgM Nonreactive Nonreactive Comment: Interpretive Data: If Hep A IgM Ab is reported as Equivocal, a new sample should be drawn in two weeks for testing. Current interpretive data was last revised on 19. Hep B core IgM Nonreactive Nonreactive [facility] Comment: Interpretive Data If HepB Core IgM Ab is reported as Equivocal, a new sample should be drawn in two weeks for testing. Current interpretive data was last revised on 19. Hep C Ab Nonreactive Nonreactive [facility] Comment: Interpretive Data Nonreactive: Antibodies to HCV not detected. Does NOT exclude the possibility of recent exposure to HCV. Equivocal: Equivocal for HCV antibodies. Supplemental molecular testing will be automatically performed to determine infection status in accordance with current CDC screening recommendations. ?? Reactive: Positive for HCV antibodies. ??This may represent current or past HCV infection. Supplemental molecular testing will be automatically performed to determine ??current infection status in accordance with current CDC screening recommendations. Interpretive data was last revised on 2019. HepBsAg Nonreactive Nonreactive [facility] Blood 03/08/2023 10:3 7 AM CDT 03/08/2023 2:11 PM CDT Stefanie Quezada MD LAB MICROBIOLOGY - [facility] ORDERABLES Final Result [facility] [address] Department [place] [address] * Screening Mammogram 2D Bilateral (05/28/2022) Anatomical Region Laterality Modality Breast Bilateral Mammography Historical Provider MD [facility] MAMMO PROCEDURES [facility] [facility] Result * COLONOSCOPY (06/02/2019 12:38 PM MACHINE PRECISION ETCHER) Anatomical Region Laterality Modality Other Narrative Procedure Note Stef Giraldo MD - 06/02/2019 12:38 PM CST ENDOSCOPY LAB Patient Name: Kristy Wasserman Procedure Date: 06/02/2019 12:38 PM Admit Type: Outpatient Room: [facility] Date of : 1960 Instrument Name: [id number] Gender: Female Note Status: Finalized Procedure: Colonoscopy Indications: Screening for colorectal malignant neoplasm, Last colonoscopy: 2008 Providers: Stef Giraldo M.D. Referring MD: Stefanie Quezada M.D. Medicines: Propofol per Anesthesia Complications: No immediate complications. Estimated Blood Loss: Estimated blood loss: none. Procedure: Pre-Anesthesia Assessment: - Patient identification and proposed procedure were verified prior to the procedure by the physician. The procedure was verified in the pre-procedure area. - The risks and benefits of the procedure and thesedation options and risks were discussed with the patient. All questions were answered and informed consent wasobtained. The benefits, risks and alternatives of the procedureand sedation were discussed and informed consent wasobtained. All questions were answered. Please refer to the signed informed consent document in the medical record. Thescope was passed under direct vision. The Colonoscope was introduced through the anus and advanced to the the terminal ileum. The colonoscopy was performed without difficulty. The patient tolerated the procedure well.The quality of the bowel preparation was evaluated usingthe BBPS (Barto Bowel Preparation Scale) with scores of: Right Colon = 2 (minor amount of residual staining,small fragments of stool and/or opaque liquid, but mucosaseen well), Transverse Colon = 2 (minor amount of residual staining, small fragments of stool and/or opaqueliquid, but mucosa seen well) and Left Colon = 2 (minor amountof residual staining, small fragments of stool and/oropaque liquid, but mucosa seen well). The total BBPS scoreequals 6. The quality of the bowel preparation was good. The bowel preparation used was MoviPrep. Bowel prep was administered using a split dose. Findings: The terminal ileum appeared normal. The colon (entire examined portion) appeared normal. The exam was otherwise without abnormality on direct and retroflexion views. Impression: - The examined portion of the ileum was normal. - The entire examined colon is normal. - The examination was otherwise normal on direct and retroflexion views. - No specimens collected. Recommendation: - Patient has a [facility]. The signs and symptoms of potential delayedcomplications were discussed with the patient. Return to normal activities tomorrow. Written discharge instructionswere provided to the patient. - Resume previous diet. - Continue present medications. - Repeat colonoscopy in 10 years for screeningpurposes. - Return to endoscopist PRN. Attending Participation: I personally performed the entire procedure without the assistance ofa fellow, resident or surgical garment assembly supervisor. Electronically signed by Stef Giraldo Stef Giraldo M.D. 06/02/2019 12:57:36 PM Number of Addenda: 0 Note Initiated On: 06/02/2019 12:38 PM Stef Giraldo MD ENDOSCOPY PROCEDURES Final Result * Dexa Axial Skeleton Bone Density 1 or 2 Site (10/20/2018 11:07 AM CDT) Anatomical Region Laterality Modality Body N/A Radiographic Joellen ging Stefanie Quezada MD IMG DXA PROCEDURES [facility] Result from Last 3 Months or Most Recently Relevant to Health Maintenance Insurance [address] [place] [id number] [facility] MEDICARE AET SENIOR SUPPLEMENT MEDICARE AETNA SENIOR SUPPLEMENT Advance Directives For more information, please contact: [phone] * Full Code (Latest Code Status on File) Date Activated Date Inactivated Comments 03/04/2024 8:23 AM 03/04/2024 2:03 PM * Full Code Date Activated Date Inactivated Comments 03/04/2023 12:54 PM 03/04/2023 7:47 PM * Full Code Date Activated Date Inactivated Comments 06/15/2020 9:36 AM 06/15/2020 4:11 PM * Full Code Date Activated Date Inactivated Comments 05/10/2020 5:42 PM 05/13/2020 5:04 PM * Full Code Date Activated Date Inactivated Comments 06/02/2019 11:51 AM 06/02/2019 5:38 PM Care Teams Progress Developer Relationship Specialty Start Date End Date Stefanie Quezada MD [address] [facility] [address] [place] [address] PCP - General Internal Medicine 08/06/17 Ralph Torrez MD [address] [facility] [address] [place] [address] Consulting Physician Gastroenterology 05/13/20 Moira Mireles OD [address] [place] [address] [place] [address] Optometry 02/08/21
--- OUTSIDE RECORDS SUMMARY | 2024-06-11 22:52 | XMS_ITS | Clinical Summary ---
[facility] Organization [facility] Address [address] [place] [address] Care Team Providers Care Shearing Machine Tender Name Role Phone Stefanie Quezada MD Primary Care Provider Ralph Torrez MD Unavailable [phone] Moira Mireles OD Unavailable [phone] Allergies Active Allergy Reactions Criticality Noted Date Comments Losartan Dizziness Low 02/14/2024 Sulfamethoxazole Itching Reaction: Itching, Trimethoprim Itching Reaction: Itching, Medications albuterol HFA (PROVENTIL HFA,VENTOLIN HFA,PROAIR HFA) 90 mcg/actuation inhaler Inhale 2 puffs every 8 (eight) hours as needed for wheezing 1 each 02/22/20 23 Active dicyclomine (BENTYL) 10 mg capsule Take 1 capsule (10 mg total) by mouth 4 (four) times a day before meals and nightly 02/23/20 23 Active lidocaine (XYLOCAINE) 5 % ointment Apply topically as needed for pain 35.44 g 12/23/19 24 Active rimegepant (Nurtec ODT) tablet,disintegrat ingIndications:[facility] 1 tablet (75 mg total) under the tongue every other day 45 tablet 3 02/25/20 24 025 Active Additional Information Patient not taking.Reported on 03/19/2024 rizatriptan PRODUCTION HARDENER (MAXALT-PRODUCTION HARDENER) 10 mg disintegrating tabletIndications: Migraine Take 1 [...] mouth daily 30 capsule 11 05/18/20 24 025 Active nortriptyline (PAMELOR) 25 mg [...] contact the office. Has an appointment with highway safety engineer next week. We did discuss cutting down [...] lexapro to 5mg. Has an appointment with highway safety engineer next week. Worsening symptoms to call or go to the ER. Post-menopausal 01/31/2024 Hair thinning 01/31/2024 Assessment & Plan (01/31/2024 5:21 PM CDT): Discussed getting TSH and seeing a branch billing payroll clerk Pancreatic cyst 02/19/2023 Assessment & Plan (01/31/2024 5:19 PM CDT): Needs to follow-up with bullet assembly press setter operator for EUS. States she will have to [...] from the prior study Family history of MS (myocardial infarction) Overview (05/10/2020): Father passed of [...] LFTs Assessment & Plan (05/10/2020 1:09 PM FIRE ALARM DISPATCHER): Acute elevation in LFTs & bilirubin. Patient has a Hx of cholecystitis with cholecystectomy. Discussed possibilities for biliary tract obstruction including residual stone, mass, mucus plugging etcetera. Patient agrees to go to [facility] ED. Triage report called to [facility] ED. Age-related nuclear cataract of both eyes 2019 Assessment & Plan (04/20/2020 3:27 PM FIRE ALARM DISPATCHER): Not yet visually significant; follow for now PVD (posterior vitreous detachment), right 04/19 Assessment & Plan (04/20/2020 3:28 PM FIRE ALARM DISPATCHER): Acute X 1 week -retina flat and attached both eyes (OU) -pt ed s/s retinal detachment (RD): RTC rudi if noted -otherwise RTC 1 month repeat DFE Assessment & Plan (04/19/2020 3:18 PM FIRE ALARM DISPATCHER): No headaches noted. But there is describing spots during the field of vision. Recommended [facility] evaluation. Referral made. Osteopenia of spine 07/24/2019 Assessment & Plan (02/08/2021 12:55 PM CDT): Calcium vitamin-D weight-bearing exercises Assessment & Plan (08/10/2020 12:57 PM CDT): Continue calcium vitamin-D weight-bearing exercises repeat bone density Assessment & Plan (07/24/2019 1:58 PM FIRE ALARM DISPATCHER): We d/w this in detail and we d.w ca and vit D and weight bearing exercises Acne keloidalis nuchae 04/24/2019 Assessment & Plan (01/31/2024 5:28 PM CDT): Referred to dermatology Assessment & Plan (04/24/2019 3:06 PM FIRE ALARM DISPATCHER): The lesion has increased in size and [...] tolerated. Assessment & Plan (04/24/2019 3:06 PM FIRE ALARM DISPATCHER): Discussed weight and exercise changes. She is very motivated to bring her BMI down. Routine physical examination 06/20/2018 Assessment & Plan (02/06/2024 8:29 PM CDT): HRA form reviewed. We discussed diet and exercise. We discussed continuing social engagement with family and within community. States very active. We discussed seeing bullet assembly press setter operator for repeat EUS. Pneumonia vaccine today. Flu [...] year. Assessment & Plan (06/20/2018 3:10 PM FIRE ALARM DISPATCHER): We discussed diet and exercise in detail. [...] well. Assessment & Plan (05/10/2020 11:10 PM FIRE ALARM DISPATCHER): Continue home wellbutrin and lexapro Assessment & Plan (04/19/2020 3:17 PM FIRE ALARM DISPATCHER): Patient doing better with increasing the Lexapro [...] this. Assessment & Plan (04/24/2019 3:06 PM FIRE ALARM DISPATCHER): Doing well on Lexapro 10 mg a day and Wellbutrin XL 150 mg a day. Discussed diet and exercise and cognitive behavioral therapy Assessment & Plan (06/20/2018 3:10 PM FIRE ALARM DISPATCHER): Patient is smiling and doing well on [...] 2022 Assessment & Plan (04/19/2020 3:17 PM FIRE ALARM DISPATCHER): Scheduled for mammogram by end may. Continuing Activella. Assessment & Plan (04/24/2019 3:06 PM FIRE ALARM DISPATCHER): Up-to-date with mammogram. Pap smear in June of 2019. Continue Activella. Assessment & Plan (06/20/2018 3:10 PM FIRE ALARM DISPATCHER): Continue control. Mammogram and bone density prescriptions [...] Sarcoidosis 08/05/2017 Overview (08/28/2017): Dx'd by mediastinoscopy circa 1989 Assessment & Plan (01/31/2024 5:11 PM CDT): [...] 08/10/2020 Assessment & Plan (05/10/2020 11:10 PM FIRE ALARM DISPATCHER): Most likely secondary to GI source. Will follow trop and monitor on tele. On OCP - considered PE, but no SOB, tachycardia, or oxygen requirement and chest pain not persistent. Will work up as above Assessment & Plan (05/10/2020 10:21 AM FIRE ALARM DISPATCHER): EKG negative for any signs of ACS. [...] 08/10/2020 Assessment & Plan (05/10/2020 11:11 PM FIRE ALARM DISPATCHER): LFTs significantly elevated for the first time [...] 08/10/2020 Assessment & Plan (05/10/2020 11:29 PM FIRE ALARM DISPATCHER): Appears new - unclear etiology - will just follow for now Strep pharyngitis 08/11/2018 08/10/2020 Assessment & Plan (08/11/2018 10:51 AM CDT): Rapid strep +. Placed on amoxicillin b.i.d. X7 days, gvjb-mil-lgsyvuv supportive care infection control precautions outlined. Complicated [...] at home readings Upper abdominal pain 021 Encounters Date Type Department Care Team Description 06/08/2024 Telephone [facility] [address] [place] [address] [address] [place] [address] Stefanie Quezada MD Medical Question/Miscellaneou s 04/04/2024 11:20 AM FIRE ALARM DISPATCHER - 04/04/2024 11:59 PM FIRE ALARM DISPATCHER Hospital Encounter [address] [id number] Intractable chronic migraine without aura and with status migrainosus; Dizzy spells; Lightheadedness Discharge Disposition: Discharge to home or self care 03/19/2024 9:00 AM CDT Lab [facility] [address] [place] [address] Hypertensive retinopathy of both eyes, grade 2 03/19/2024 8:00 AM CDT Office [facility] [address] [place] [address] Jesus Moore NP Intractable chronic migraine without aura and with status migrainosus (Primary Dx); Dizzy spells; Lightheadedness from Last 3 Months Immunizations Name Administration Dates Next Due Influenza, Quadrivalent, Spl it, Preservative Free, Intradermal 03/03/2020,02/16/2019 Influenza, Quadrivalent, Spl it, Preservative Free, Intramuscular 02/15/2022,02/08/2021,02/16/2019,02/17 Influenza, Trivalent, Cell Culture-based MDCK, Preservative Free, Antibiotic Free, Intramuscular 01/31/2024 Influenza, Unspecified 02/17/2023 BookingNest SARS-CoV-2 Monovalent Vaccination (12+ Yrs) PURPLE 03/11/2021,07/01/2020,06/10/2020 Pneumococcal Conjugate Pcv20 01/30/2024 Tdap 07/01/2014 ZOSTER Recombinant 01/28/2023,09/13/2022 Surgical History Surgery Date Site/Laterality Comments TUBAL LIGATION Tubal Ligation CHOLECYSTECTOMY Cholecystectomy TUBAL LIGATION BUNIONECTOMY Left COLONOSCOPY ERCP ANKLE FRACTURE SURGERY 05/20/2022 - 06/19/2022 Medical History Medical History Date Comments Hx Other Medical Sarcoidosis Colon polyp Sarcoidosis Depression GERD (gastroesophageal reflux disease) Migraines Family History Medical History Relation Name Comments Hyperlipidemia Brother 1 No Known Problems Brother 2 No Known Problems Brother 3 Heart disease Father Cancer Mother Hypertension Mother Uterine cancer Mother Hyperlipidemia Sister Relation Name Status Comments Brother 1 Alive Brother 2 Alive Brother 3 Alive Father Mother Alive Sister Alive Social History Tobacco Use Types Packs/Day Years [...] on file Legal Sex Female 4:21 AM FIRE ALARM DISPATCHER Gender Identity Female 10/18/2022 10:06 PM CDT Sexual Orientation Straight 10/18/2022 10 :06 PM CDT Obstetrics History Last Filed Vital Signs Vital Sign Reading [...] 03/19/2024 8:09 AM CDT Plan of Treatment Health Maintenance Due Date Last Done Comments Hepatitis B Screening 1978 Osteoporosis Screening-Bone Density Scan 10/20/2020 10/20/2018, 09/01/2018 Breast Cancer Screening-Mammogram 05/28/2023 05/28/2022, 08/17/2020, 09/01/2018, Additional history exists DTaP/Tdap/Td Vaccine (3 - Td or Tdap) 07/01/2024 07/01/2014, 05/30/2012 Cervical Cancer Screening 01/29/2025 01/30/2024, Well Visit 65+ 01/29/2025 01/30/2024, 10/0 07/2022, 02/15/2022, Additional history exists Depression Screening 02/24/2025 02/25/2024, 02/07/2024, 01/30/2024, Additional history exists Fall Risk Assessment 03/04/2025 03/04/2024, 01/30/2024, 07/24/2019 Colon Cancer Screening-Colonoscopy 06/02/2029 06/02/2019 Colon Cancer Screening-CT Colonography Discontinued 06/02/2019 Colon Cancer Screening-DNA Stool Discontinued 06/02/19 Colon Cancer Screening-FIT Discontinued 06/02/2019 Colon Cancer Screening-Sigmoidoscopy Discontinued 06/02/2019 Zoster Vaccine Completed 01/28/2023, 09/13/2022 Hepatitis C Screening Completed 03/08/2023, 020 Pneumococcal vaccine 65+ Completed 01/30/2024 Influenza Vaccine Completed 01/31/2024, , 02/17/2023, Additional history exists Covid-19 Vaccine Completed 03/29/2024, , 09/13/2022, Additional history exists Medical Devices Explanted Type Area Fashion Styling Intern Device Identifier Shelf Expiration Date Model / Serial / Lot [employer] 6552 Menon 5fr 5cm Flexible .035in Small Pigtail Curve Stent - [id number] Explanted:Qty: 1 on 05/11/2020 by Phill Alexis MD at [facility] Stent N/A: Bile Duct [employer] 09/16/2024 6552 / / [id number] Procedures Procedure Name Priority Date/Time Associated Diagnosis Comments CTA HEAD NECK W WO CONTRAST Schedule Routine, Read Routine (OP Routine) 04/04/2024 11:57 AM FIRE ALARM DISPATCHER Intractable chronic migraine without aura and with [...] (OP Routine) 05/28/2022 COLONOSCOPY 06/02/2019 12:38 PM FIRE ALARM DISPATCHER DEXA AXIAL SKELETON BONE DENSITY 1 OR MORE SITES Schedule Routine, Read Routine (OP Routine) 10/20/2018 11:07 AM CDT Post menopausal syndrome from Last 3 Months or Most Recently Relevant to Health Maintenance Results * CTA Head Neck W WO Contrast (04/04/2024 11:57 AM FIRE ALARM DISPATCHER) Anatomical Region Laterality Modality Head and Neck N/A Computed Tomogra phy 04/06/2024 9:03 AM FIRE ALARM DISPATCHER Narrative 04/06/2024 9:15 AM FIRE ALARM DISPATCHER EXAM DESCRIPTION: ?? CTA HEAD NECK W [...] ?? No other significant abnormality. INTRACRANIAL VESSELS CHITINA OF AVILES: ?? The anterior, middle, posterior [...] acute abnormality. No worrisome nodules. OTHER: ?? Irgz-ha-exyfggzp spinal canal stenosis suspected at C3-C4 due [...] AM T: ??04/06/2024 9:15 AM Report ID: [id number] Reading Location: ??[id number] Procedure Note Tushar Barba MD - 04/06/2024 [...] OTHER: No other significant abnormality. INTRACRANIAL VESSELS CHITINA OF AVILES: The anterior, middle, posterior cerebral [...] No acute abnormality. No worrisome nodules. OTHER: Nexa-bx-xtalinmb spinal canal stenosis suspected at C3-C4 due toa disc osteophyte complex. IMPRESSION: BRAIN: No acute intracranial process. INTRACRANIAL CTA: Normal. CAROTID CTA: Normal CTA of the extra-cranial carotid and vertebralarteries. THIS IS AN ELECTRONICALLY VERIFIED FINAL REPORT 04/06/2024 9:15 AM - Electronically signed by Tushar Barba M.D. MM: MM Report ID: [id number] Reading Location: [place] [address] Jesus Moore NP [facility] CT PROCEDURES Final Result * eGFR (03/19/2024 [...] MD LAB BLOOD ORDERABLES Fi nal Result [facility] [address] Department [place] [address] * Basic metabolic panel (03/19/2024 8:52 AM CDT) Sodium 137 135 - 145 mmol/L Potassium, pl 4.4 3.3 - 4.9 mmol/L [facility] Chloride 98 97 - 110 mmol/L [facility] CO2 27 22 - 32 mmol/L [facility] Anion gap 12 2 - 15 mmol/L [facility] BUN 11 6 - 25 mg/dL [facility] Creatinine 0.69 0.60 - 1.10 mg/dL [facility] Glucose 101 70 - 199 mg/dL [facility] Comment: Interpretive Data Fasting glucose >/= 126 [...] classification and Diagnosis of Diabetes Diabetes Care 2022; 46: S19-S40. Current interpretive data was last revised 2022. Calcium 9.9 8.5 - 10.3 mg/dL [facility] Blood 03/19/2024 8:52 AM CDT 03/19/2024 1:12 PM CDT us Stefanie Quezada MD LAB BLOOD ORDERABLES Fi nal Result [facility] [address] Department [place] [address] * Pap with reflex to High Risk HPV and Genotyping (Cytology Component) (01/30/2024 12:00 AM CDT) Thin prep (Pap test) 01/30/2024 01/31/2024 12:19 PM CDT Narrative [facility] - 02/04/2024 3:39 PM CDT EPIC results best viewed via link to PDF [address] ??[address] Tele: ?? Addie Lincoln MD - Dry Yard Worker CYTOLOGY REPORT Note to Patients: This report [...] the details. Patient Name: ??KRISTY CA Address: ??[address] [place] [address] Gender: ??F : ??1960 (Age: 63) Service: ?? Location: ?? Hospital #: ??[id number] Patient Type: ??[facility] SPECIMEN Taken: ??01/30/2024 Reported: ??02/04/2024 Physician(s): ? ANANTH Winn FINAL DIAGNOSIS: SOURCE OF SPECIMEN ?- ThinPrep Pap w/ reflex HPV: STATEMENT OF ADEQUACY Source: ??Cervical/Endocervical ?- Satisfactory for interpretation ?- Endocervical /Transformation Zone component present ?- Case screened using computer assisted imaging technology and manually re-screened by a banana handler. ? GENERAL CATEGORIZATION: ?- Negative for intraepithelial [...] NP LAB CYTOLOGY ORDERABLES Final Result [facility] Laboratory Receiving [address] [place] [address] * Hepatitis panel, acute Blood (03/08/2023 10:37 [...] on 19. Hep C Ab Nonreactive Nonreactive [facility] Comment: Interpretive Data Nonreactive: Antibodies to HCV [...] last revised on 2019. HepBsAg Nonreactive Nonreactive [facility] Blood 03/08/2023 10:3 7 AM CDT 03/08/2023 2:11 PM CDT Stefanie Quezada MD LAB MICROBIOLOGY - GENE [facility] ORDERABLES Final Result [facility] [address] Department [place] [address] * Screening Mammogram 2D Bilateral (05/28/2022) Anatomical Region Laterality Modality Breast Bilateral Mammography Historical Provider MD [facility] PROCEDURES [facility] Result * COLONOSCOPY (06/02/2019 12:38 PM FIRE ALARM DISPATCHER) Anatomical Region Laterality Modality Other Narrative Procedure Note Stef Giraldo MD - 06/02/2019 12:38 PM CST ENDOSCOPY LAB Patient Name: Kristy Wasserman Procedure Date: 06/02/2019 12:38 PM Admit Type: Outpatient Room: [facility] Date of : 1960 Instrument Name: [id number] [...] the bowel preparation was evaluated usingthe BBPS ([place] Bowel Preparation Scale) with scores of: Right [...] - Patient has a contact number available foremergencies. The signs and symptoms of potential delayedcomplications were discussed with the patient. Return to normal activities tomorrow. Written discharge instructionswere provided to the patient. - Resume previous diet. - Continue present medications. - Repeat colonoscopy in 10 years for screeningpurposes. - Return to endoscopist PRN. Attending Participation: I personally performed the entire procedure without the assistance ofa fellow, resident or training program assistant. Electronically signed by Stef Giraldo Stef Giraldo [...] Recently Relevant to Health Maintenance Insurance [facility] [address] [place] [id number] [place] [address] MEDICARE [facility]IC[facility] [employer] SENIOR SUPPLEMENT Advance Directives For more information, please contact: [phone] * Full Code (Latest Code Status on [...] 11:51 AM 06/02/2019 5:38 PM Care Teams Shearing Machine Tender Relationship Specialty Start Date End Date Stefanie Quezada MD [address] [facility] [place] [address] [place] [address] PCP - General Internal Medicine 08/06/17 Ralph Torrez MD [address] [place] [address] Consulting Physician Gastroenterology 05/13/20 Moira Mireles OD [address] [place] [address] Optometry 02/08/21
== END 2024-06-10 09:48 | disposition home or self-care (01) ==
LOC: ANHIMG 09:51
DX: Z12.31 Encounter for screening mammogram for malignant neoplasm of breast (principal)
CPT/HCPCS: 77063; 77067

== ENCOUNTER 2024-07-17 07:23 | Outpatient (CLI) | payer MEDICARE, SELFPAY | END 2024-07-17 07:24 | disposition home or self-care (01) | LOC: ANHIMG 07:26 | DX: M85.88 Other specified disorders of bone density and structure, other site (principal); Z78.0 Asymptomatic menopausal state | CPT/HCPCS: 77080 ==